=== PATIENT | male | born 1935 | race Two or more races ===

== ENCOUNTER 2022-05-29 20:02 | Emergency (ER) | payer OTHER ==
[~2022-05-29] VITALS: Ht 170.2 cm; Wt 54.4 kg
[2022-05-29] MEDS ORDERED: CRESTOR20 MG PO (20:25)
== END 2022-05-30 03:18 | disposition designated cancer center or children's hospital (05) ==
LOC: ER 20:02
DX: J90 Pleural effusion, not elsewhere classified (principal); Z85.118 Personal history of other malignant neoplasm of bronchus and lung; Z20.822 Contact with and (suspected) exposure to COVID-19; C34.90 Malignant neoplasm of unspecified part of unspecified bronchus or lung